=== PATIENT | male | born 1995 ===

== ENCOUNTER 2018-11-16 22:14 | Emergency (ER) | payer OTHER ==
[2018-11-16] MEDS ORDERED: LIDOCAINE 2% VISCOUS 15 ML UDCUP PO ONE (23:05)
[2018-11-16] MEDS ORDERED: MAG HYDROX/AL HYDROX/SIMETH 30 ML UDCUP PO ONE (23:06)
[2018-11-16] MEDS ORDERED: HYOSCYAMINE SULFATE 0.125 MG TAB PO ONE (23:06)
--- NOTE | 2018-11-16 23:30 | EDPHY ---
H & P Stated Complaint: abdominal pain RUQ for last 4 hrs after eating spicy food Time Seen by Provider: 11/16/18 22:59 HPI/ROS: 23 yo M presents c/o epigastric and right upper quadrant pain following eating some spicey food. He states this has happened about 5 times and has been relieved by gi cocktail. He states he has had an ultrasound that was negative for gallstones. No fever or chills. Review of systems As per HPI General no fever no chills no weakness HEENT no eye pain no eye discharge. No eye redness, no sore throat Respiratory no cough, no shortness of breath Cardiac no chest pain, no peripheral edema GI pos ruq abdominal pain, no diarrhea, no constipation, no nausea, no vomiting no flank pain, no hematuria, no dysuria Musculoskeletal no myalgias, no joint pain Heme no easy bruising, no easy bleeding Endo no polyuria, no polydipsia Skin no rashes, no pruritus Neuro no syncope, no dizziness, no headaches Psych is no suicidal ideation, no homicidal ideation Source: Patient Exam Limitations: No limitations - Personal History Current Tetanus Diphtheria and Acellular Pertussis (TDAP): Yes Tetanus Vaccine Date: unsure - Medical/Surgical History Hx Asthma: No Hx Chronic Respiratory Disease: No Hx Diabetes: No Hx Cardiac Disease: No Hx Renal Disease: No Hx Cirrhosis: No Hx Alcoholism: No Hx HIV/AIDS: No Hx Splenectomy or Spleen Trauma: No Other PMH: ulcers - Family History Significant Family History: No pertinent family hx - Social History Smoking Status: Never smoked Alcohol Use: Occasionally Drug Use: None - Physical Exam Exam: 23-year-old male alert and oriented no acute distress nontoxic appearance, afebrile HEENT atraumatic normocephalic, extraocular muscles intact, anicteric Oropharynx negative for erythema negative exudate, tolerating her own secretions Neck supple no meningismus Lungs clear to auscultation bilaterally Heart regular rate and rhythm without murmur rub or gallop Abdomen nondistended normoactive bowel sounds soft nontender, no guarding and no rebound mild epigastric and ruq tenderness Back no CVA tenderness, no step-offs, no spinal tenderness Extremities no cyanosis clubbing or edema Neuro alert and oriented, no focal deficits Constitutional: Initial Vital Signs Temperature (C) 36.5 C 11/16/18 22:24 Heart Rate 66 11/16/18 22:24 Respiratory Rate 14 11/16/18 22:24 Blood Pressure 134/93 H 11/16/18 22:24 O2 Sat (%) 97 11/16/18 22:24 O2 Delivery Mode Room Air Allergies/Adverse Reactions: No Known Allergies Allergy (Unverified 11/16/18 22:24) Home Medications: Medication Instructions Recorded NK [No Known Home Meds] 11/16/18 Medical Decision Making ED Course/Re-evaluation: Pt seen and evaluated for crampy upper abdominal pain following spicey food. No fever or chills, benign abdominal exam. No nausea, vomiting or diarrhea. Pt given gi cocktail with marked relief of pain Imp gastritis, cannot r/o pud Plan dc home [facility] Differential Diagnosis: Differential diagnosis considered but not limited to: Gastritis, gastroenteritis, peptic ulcer disease, duodenitis, cholelithiasis, cholecystitis, irritable bowel syndrome - Data Points Medications Given: Discontinued Medications Al Hydroxide/Mg Hydroxide (Maalox Susp) 30 ml PO EDNOW ONE Stop: 11/16/18 23:07 Last Admin: 11/16/18 23:14 Dose: 30 ml Hyoscyamine Sulfate (Levsin, Hyomax-Sl) 0.125 mg PO EDNOW ONE Stop: 11/16/18 23:07 Last Admin: 11/16/18 23:11 Dose: 0.125 mg Lidocaine (Lidocaine 2% Viscous) 5 ml PO EDNOW ONE Stop: 11/16/18 23:06 Last Admin: 11/16/18 23:14 Dose: 5 ml Departure - Departure Disposition: Home, Routine, Self-Care Clinical Impression: Acute gastritis Condition: Good Instructions: Gastritis (ED) Referrals: Patient,NotPresent [Primary Care Provider] - As per Instructions [facility] [Provider Group] - As per Instructions [facility] [Provider Group] - As per Instructions
[2018-11-17] VITALS: BP 122/88
== END 2018-11-16 23:51 | disposition home or self-care (01) ==
LOC: CED 22:14
DX: K29.00 Acute gastritis without bleeding (principal)
CPT/HCPCS: 99283-ER